=== PATIENT | female | born 1995 | race Caucasian/White ===

== ENCOUNTER 2021-03-16 12:14 | Emergency (ER) | payer BC ==
[2021-03-16] MEDS ORDERED: predniSONE 50 MG TAB PO STA (13:21)
[2021-03-16] MEDS ORDERED: hydrOXYzine HCL 25 MG TAB PO STA (13:21)
[2021-03-16] MEDS ORDERED: TRIAMCINOLONE 0.1% CREAM 80 GM TUBE TOPICAL STA (13:22)
--- NOTE | 2021-03-16 13:26 | ED ---
Allergic Reaction HPI - General Chief complaint: Allergic Reaction Stated complaint: Med Reaction/Rash Time Seen by Provider: 03/16/21 13:01 Source: patient, RN notes reviewed Mode of arrival: ambulatory Limitations: no limitations - History of Present Illness Initial Comments: This a 25-year-old female presents emergency Department with chief complaint ALLERGIC reaction. Patient states her last few days. Patient states she states it started on her legs. She has spread. Patient has no difficulty breathing or difficulty swallowing. Patient was concern is from her amoxicillin though she is on her last day. She's never had any issues with this in the past. No fevers or chills no other complaints. - Related Data Home Medications Medication Instructions Recorded Confirmed Amoxicillin 500 mg PO Q8H 03/16/21 03/16/21 Ibuprofen [Motrin] 800 mg PO Q8H PRN 03/16/21 03/16/21 Previous Rx's Medication Instructions Recorded Famotidine [Pepcid] 20 mg PO BID #10 tablet 03/16/21 hydrOXYzine HCL [Atarax] 25 mg PO TID PRN #15 tab 03/16/21 predniSONE 50 mg PO DAILY #5 tab 03/16/21 Allergies Allergy/AdvReac Type Severity Reaction Status Date / Time No Known Allergies Allergy Verified 03/16/21 13:21 Review of Systems ROS Statement: Those systems with pertinent positive or pertinent negative responses have been documented in the HPI. ROS Other: All systems not noted in ROS Statement are negative. Past Medical History Past Medical History: No Reported History History of Any Multi-Drug Resistant Organisms: None Reported Past Surgical History: No Surgical Hx Reported Past Psychological History: No Psychological Hx Reported Smoking Status: Current every day smoker Past Alcohol Use History: None Reported Past Drug Use History: None Reported General Exam Limitations: no limitations General appearance: alert, in no apparent distress Eye exam: Present: normal appearance, PERRL, EOMI. Absent: scleral icterus, conjunctival injection, periorbital swelling ENT exam: Present: normal exam, mucous membranes moist Neck exam: Present: normal inspection. Absent: tenderness, meningismus, lymphadenopathy Respiratory exam: Present: normal lung sounds bilaterally. Absent: respiratory distress, wheezes, rales, rhonchi, stridor Cardiovascular Exam: Present: regular rate, normal rhythm, normal heart sounds. Absent: systolic murmur, diastolic murmur, rubs, gallop, clicks Skin exam: Present: warm, dry, intact, normal color, rash, urticaria Course Vital Signs 03/16/21 12:26 Temperature 98.2 F Pulse Rate 79 Respiratory 16 Rate Blood Pressure 145/75 O2 Sat by Pulse 100 Oximetry Medical Decision Making - Medical Decision Making Patient has a mild reaction may be something from contact felt less likely to be related to amoxicillin. Patient we given prednisone and Atarax and topical ointments. Disposition Clinical Impression: Allergic reaction Disposition: HOME SELF-CARE Condition: Stable Instructions (If sedation given, give patient instructions): General Allergic Reaction (ED) Additional Instructions: Please return to the Emergency Department if symptoms worsen or any other concerns. Prescriptions: hydrOXYzine HCL [Atarax] 25 mg PO TID PRN #15 tab PRN Reason: itching Famotidine [Pepcid] 20 mg PO BID #10 tablet predniSONE 50 mg PO DAILY #5 tab Is patient prescribed a controlled substance at d/c from ED?: No Referrals: None,Stated [Primary Care Provider] - 1-2 days Time of Disposition: 13:26
[2021-03-16 14:23] VITALS: BP 101/58; PULSE 55; RESP 18; TEMP 98
== END 2021-03-16 14:20 | disposition home or self-care (01) ==
LOC: EC 12:14
DX: L50.0 Allergic urticaria (principal); F17.200 Nicotine dependence, unspecified, uncomplicated; Z79.1 Long term (current) use of non-steroidal anti-inflammatories (NSAID); Z79.52 Long term (current) use of systemic steroids
CPT/HCPCS: 99283; J7512